=== PATIENT | female | born 1960 ===

== ENCOUNTER → 2019-06-14 | Outpatient (CLI) | payer OTHER ==
[~2019-06-14] MED LIST: LEVSOD100; OMEPRAZOLE20 MG PO; Zantac150 MG
== END | disposition home or self-care (01) ==
LOC: LAB EV 12:58 → LAB SHORT 12:58
DX: N39.0 Urinary tract infection, site not specified (principal)
CPT/HCPCS: 87086

== ENCOUNTER → 2020-06-28 | Outpatient (CLI) | payer OTHER | LOC: LAB SHORT 12:00 → LAB 12:00 | DX: R30.0 Dysuria (principal) | CPT/HCPCS: 87086 ==

== ENCOUNTER → 2022-01-10 | Outpatient (CLI) | payer OTHER | END | disposition home or self-care (01) | LOC: LAB SHORT 05:35 → LAB 05:35 | DX: R30.0 Dysuria (principal) | CPT/HCPCS: 87077; 87086; 87186 ==

== ENCOUNTER 2022-02-09 07:57 | Emergency (ER) | payer OTHER ==
[~2022-02-09] VITALS: Ht 160 cm; Wt 72.6 kg
== END 2022-02-09 10:40 | disposition home or self-care (01) ==
LOC: ER 07:57
DX: N95.0 Postmenopausal bleeding (principal); Z79.899 Other long term (current) drug therapy
CPT/HCPCS: 36415; 76830; 76856; 99284-25

== ENCOUNTER 2022-05-16 13:07 | Day surgery (SDC) | payer OTHER ==
[~2022-05-16] VITALS: Ht 160 cm; Wt 81.0 kg
[2022-05-16] MEDS ORDERED: PANT20 (13:30)
== END 2022-05-16 15:19 | disposition home or self-care (01) ==
LOC: ORSCSDS 13:07
PROVIDERS: Surgery
PROC: 0DJD8ZZ Inspection of Lower Intestinal Tract, Via Natural or Artificial Opening Endoscopic (ICD-10-PCS; principal; 2022-05-16 14:00)
DX: K62.5 Hemorrhage of anus and rectum (principal); Z86.010 Personal history of colon polyps; K21.9 Gastro-esophageal reflux disease without esophagitis; E03.9 Hypothyroidism, unspecified; E66.9 Obesity, unspecified; Z68.31 Body mass index [BMI] 31.0-31.9, adult; Z79.899 Other long term (current) drug therapy
CPT/HCPCS: J0461; J2405; J2704; J7120

== ENCOUNTER → 2023-03-20 | Outpatient (CLI) | payer OTHER ==
[~2023-03-20] MED LIST changes: +PANT20
== END | disposition home or self-care (01) ==
LOC: LAB 18:52 → LAB SHORT 18:52
DX: N39.0 Urinary tract infection, site not specified (principal)
CPT/HCPCS: 87077; 87086; 87186

== ENCOUNTER → 2023-09-19 | Outpatient (CLI) | payer OTHER | END | disposition home or self-care (01) | LOC: LAB 16:00 → LAB SHORT 16:00 | DX: N39.0 Urinary tract infection, site not specified (principal) | CPT/HCPCS: 87077; 87086; 87186 ==